=== PATIENT | male | born 1980 | race Two or more races ===

== ENCOUNTER 2021-02-25 02:16 | Emergency (ER) | payer SELFPAY ==
[~2021-02-25] VITALS: Ht 170.2 cm; Wt 84.0 kg
[2021-02-25 04:19] LABS: BASOPHILS % 0.6 % (0.0-2.0); EOSINOPHILS % 1.8 % (0.0-5.0); HEMATOCRIT. 45.3 % (42.0-52.0); HEMOGLOBIN. 15.6 g/dL (14.0-18.0); LYMPHOCYTES % 29.1 % (20.0-50.0); MEAN CORPUSCULAR HEMOGLOBIN 29.7 pg (28.0-32.0); MEAN CORPUSCULAR VOLUME 86.2 fL (80.0-94.0); MEAN PLATELET VOLUME 7.6 fl (7.4-10.4); MONOCYTES % 7.5 % (2.0-8.0); PLATELET 282 x1000/uL (130-400); RED BLOOD CELL COUNT 5.25 mill/uL (4.7-6.1); RED CELL DISTRIBUTION WIDTH 13.2 % (11.6-14.6)
[2021-02-25 04:30] LABS: CHLORIDE 106 mEq/L (98-107)
[2021-02-25] MEDS ORDERED: TETANUS, DIPHTHERIA, PERTUSSIS VAC/PF 0.5ML (>10YR OLD) IM ONE (06:00)
[2021-02-25 06:44] VITALS: BP 111/70
[2021-02-25] MEDS ORDERED: IOHEXOL-350 100 ML BOTTLE ONE (07:05)
== END 2021-02-25 06:48 | disposition home or self-care (01) ==
LOC: ER 02:16
DX: S31.119A Laceration without foreign body of abdominal wall, unspecified quadrant without penetration into peritoneal cavity, initial encounter (principal); W26.8XXA Contact with other sharp object(s), not elsewhere classified, initial encounter; Y93.89 Activity, other specified; Y92.89 Other specified places as the place of occurrence of the external cause; Y99.8 Other external cause status
CPT/HCPCS: 36415; 71045; 74174; 80053; 85025; 86850; 86900; 86901; 90471; 90715; 99285; Q9967